=== PATIENT | female | born 1945 | race African-American/Black ===

== ENCOUNTER 2018-03-28 12:29 | Emergency (ER) | payer MEDICARE ==
[~2018-03-28] VITALS: Ht 165.1 cm; Wt 72.7 kg
[2018-03-28 12:33] VITALS: Ht 165.1 cm; Wt 72.7 kg
[2018-03-28] MEDS ORDERED: NAMENDA10 MG PO (12:34)
[2018-03-28] MEDS ORDERED: RISPERDAL0.25 MG PO (12:35)
[2018-03-28] MEDS ORDERED: ZANTAC300 MG PO (12:35)
[2018-03-28] MEDS ORDERED: OXYBUTYNIN CHLOR5 MG PO (12:35)
[2018-03-28] MEDS ORDERED: DONEPEZIL HCL10 M1 PO (12:36)
[2018-03-28] MEDS ORDERED: LISINOPRIL5 MG PO (12:36)
[2018-03-28 13:07] LABS: BASOPHILS 0.2 % (0-2); EOSINOPHILS 7.5 % (0-7); HEMATOCRIT 36.9 % (36.0-48.0); HEMOGLOBIN 12.1 g/dL (12-16); LYMPHOCYTES 34.8 % (15-50); MCH 30.1 pg (26.0-34.0); MCHC 32.8 g/dL (31.0-37.0); MCV 91.8 fL (80.0-100.0); MEAN PLATELET VOLUME 9.9 fL (7.4-10.4); MONOCYTES 12.2 % (2-11); NEUTROPHILS 45.3 % (40-80); PLATELET COUNT 179 10x3/uL (130-400); RBC 4.02 10x6/uL (4.00-5.40); RDW 12.8 % (11.5-14.5); WBC 4.3 10x3/uL (4.8-10.8)
[2018-03-28 13:13] LABS: ALBUMIN 3.5 g/dL (3.4-5.0); ANION GAP 15.6 mmol/L (8-16); BILIRUBIN - TOTAL 0.3 mg/dL (0.2-1.3); CALCIUM 8.8 mg/dL (8.5-10.1); CREATININE - SERUM 1.2 mg/dL (0.6-1.3); POTASSIUM - SERUM 3.6 mmol/L (3.5-5.1); PROTEIN - SERUM 7.4 g/dL (6.4-8.2)
[2018-03-28 14:41] LABS: APPEARANCE CLEAR (CLEAR); BILIRUBIN NEGATIVE (NEGATIVE); COLOR YELLOW (YELLOW); GLUCOSE NEGATIVE (NEGATIVE); KETONE NEGATIVE (NEGATIVE); NITRITE NEGATIVE (NEGATIVE); PROTEIN NEGATIVE (NEGATIVE); UROBILINOGEN NORMAL (NORMAL)
[2018-03-28 16:20] VITALS: BP 156/63
== END 2018-03-28 16:56 | disposition home or self-care (01) ==
LOC: D.ER 12:29
PROVIDERS: Emergency Medicine
DX: R53.1 Weakness (principal); F03.90 Unspecified dementia, unspecified severity, without behavioral disturbance, psychotic disturbance, mood disturbance, and anxiety; R20.2 Paresthesia of skin; R53.83 Other fatigue; I10 Essential (primary) hypertension

== ENCOUNTER 2018-04-26 17:52 | Inpatient (IN) | payer MEDICARE ==
[~2018-04-26] VITALS: Ht 165.1 cm; Wt 73.9 kg
--- NOTE | ~2018-04-26 | PN ---
PATIENT:PIPER GARZA MEDICAL RECORD: [id number] LOCATION:[facility] ADMISSION DATE: 04/26/18 PROGRESS NOTE DATE OF SERVICE: 05/07/2018 SUBJECTIVE: The patient's case was discussed with staff. She has no new complaint. OBJECTIVE: The patient denies intent to harm herself or others. She is tolerating her medicines well. ASSESSMENT: No change in diagnoses. PLAN: Supportive and educational interventions were made. Long-term prognosis is guarded. TRANSINT:[id number] Voice Confirmation ID: [id number] DOCUMENT ID: [id number] ATA SERRANO MD at 1309 CC: [id number] DICTATION DATE: 05/07/18 1333 RADAR OPERATOR: 05/07/18 1543 ADM IN [place] [address] [place] [address]
--- NOTE | ~2018-04-26 | PN ---
PATIENT:PIPER GARZA MEDICAL RECORD: [id number] LOCATION:[facility] ADMISSION DATE: 04/26/18 PROGRESS NOTE DATE OF SERVICE: 05/05/2018 SUBJECTIVE: The patient's case was discussed with staff. She has no new complaint. OBJECTIVE: The patient denies intent to harm herself or others. She generally tolerates her medicines well. Eye contact is fair. ASSESSMENT: No change in diagnoses. PLAN: The patient is not sleeping well. She will be prescribed trazodone at a dose of 100 mg at bedtime to assist with sleep consolidation. Her long-term prognosis is guarded. TRANSINT:[id number] Voice Confirmation ID: [id number] DOCUMENT ID: [id number] ATA SERRANO MD at 1021 CC: [id number] DICTATION DATE: 05/05/18 1214 CLIENT CUSTOMER MANAGER: 05/05/18 1235 ADM IN [id number] [place] [address]
--- NOTE | ~2018-04-26 | PN ---
PATIENT:PIPER GARZA MEDICAL RECORD: [id number] LOCATION:[facility] ADMISSION DATE: 04/26/18 PROGRESS NOTE DATE OF SERVICE: 05/12/2018 SUBJECTIVE: The patient's case was discussed with staff. She has no new complaint. OBJECTIVE: The patient is somewhat sedated. She has fairly limited insight about her situation. She has not been agitated today. ASSESSMENT: No change in diagnoses. PLAN: I am going to stop the patient's Klonopin. I am going to maintain her on the Geodon. Her long-term prognosis is guarded. TRANSINT:[id number] Voice Confirmation ID: [id number] DOCUMENT ID: [id number] ATA SERRANO MD at 0908 CC: [id number] DICTATION DATE: 05/12/18 1119 UNCLAIMED PROPERTY MANAGER: 05/12/18 1154 ADM IN [facility] [address] [place] [address]
--- NOTE | ~2018-04-26 | PN ---
PATIENT:PIPER GARZA MEDICAL RECORD: [id number] LOCATION:[facility] ADMISSION DATE: 04/26/18 PROGRESS NOTE DATE OF SERVICE: 04/29/2018 SUBJECTIVE: The patient's case was discussed with staff. She has no new complaint. OBJECTIVE: The patient is not eating very well, but she did sleep well last night. May be because she required some p.r.n. Haldol for agitation, but when asked about it, she does not have any recollection of the events. Today, she is awake and she is not agitated, but the documentation from last night was that she was quite aggressive and posed a safety risk and required the p.r.n. Haldol to control her behavior. I have reviewed her current medications and think that she is on an appropriate dose of Aricept and Namenda. I am going to discontinue the scheduled dose of Risperdal secondary to its clear lack of efficacy as evidenced by her; 1. Being here. 2. Continuing to need p.r.n. doses of an antipsychotic for agitation. I am going to treat her with a low dose of Geodon on a scheduled basis. She will be monitored for clinical changes associated with its use. Her long-term prognosis is guarded. TRANSINT:[id number] Voice Confirmation ID: [id number] DOCUMENT ID: [id number] ATA SERRANO MD at 1627 CC: [id number] DICTATION DATE: 04/29/18 170 CHURCH HISTORY PROFESSOR: 04/29/186 ADM IN [place] [place] [address]
--- NOTE | ~2018-04-26 | PN ---
PATIENT:PIPER GARZA MEDICAL RECORD: [id number] LOCATION:[facility] ADMISSION DATE: 04/26/18 PROGRESS NOTE DATE OF SERVICE: 05/03/2018 SUBJECTIVE: The patient's case was discussed with staff. She has no new complaint. OBJECTIVE: The patient denies intent to harm herself or others. She is tolerating her medications reasonably well. Her appetite has improved. Her behaviors have also significantly improved with the use of the Geodon. ASSESSMENT: No change in diagnoses. PLAN: I am optimistic that the [facility] going [facility]. This is a holiday weekend and I am not optimistic that it can be accomplished before Thursday, but if it does, I think it is a little premature to discharge her, but I will just assess whether or not she is stable enough to go at that time. TRANSINT:[id number] Voice Confirmation ID: [id number] DOCUMENT ID: [id number] ATA SERRANO MD at 1042 CC: [id number] DICTATION DATE: 05/03/18 1617 COMMUNICATION AND OUTREACH MANAGER: 05/03/18 1742 ADM IN [facility] [address] [place] [address]
--- NOTE | ~2018-04-26 | PN ---
PATIENT:PIPER GARZA MEDICAL RECORD: [id number] LOCATION:[facility] ADMISSION DATE: 04/26/18 PROGRESS NOTE DATE OF SERVICE: 05/09/2018 SUBJECTIVE: The patient's case was discussed with staff. She has no new complaint. OBJECTIVE: The patient is in good behavioral control with very limited insight about her condition, but she has not been aggressive. She is eating well and sleeping reasonably well. ASSESSMENT: No change in diagnoses. PLAN: Supportive and educational interventions were made. Long-term prognosis is guarded. The patient is certainly in need of 58-rqwd-r-day supervision. I am not sure at this point what the family intends to do with her. TRANSINT:[id number] Voice Confirmation ID: [id number] DOCUMENT ID: [id number] ATA SERRANO MD at 1551 CC: [id number] DICTATION DATE: 05/09/18 1157 SQUAD BOSS: 05/09/18 1218 ADM IN [place] [id number] [place] [address]
--- NOTE | ~2018-04-26 | PN ---
PATIENT:PIPER GARZA MEDICAL RECORD: [id number] LOCATION:[facility] ADMISSION DATE: 04/26/18 PROGRESS NOTE DATE OF SERVICE: 05/04/2018 SUBJECTIVE: The patient's case was discussed with staff. She has no new complaint. OBJECTIVE: The patient is eating and sleeping reasonably well. She is profoundly confused but has not been aggressive today. ASSESSMENT: No change in diagnoses. PLAN: Supportive and educational interventions were made. Long-term prognosis is guarded. TRANSINT:[id number] Voice Confirmation ID: [id number] DOCUMENT ID: [id number] ATA SERRANO MD at 1133 CC: [id number] DICTATION DATE: 05/04/18 1523 FLARING MACHINE OPERATOR: 05/04/182038 ADM IN [id number] [place] [address]
--- NOTE | ~2018-04-26 | PN ---
PATIENT:PIPER GARZA MEDICAL RECORD: [id number] LOCATION:[facility] ADMISSION DATE: 04/26/18 PROGRESS NOTE DATE OF SERVICE: 04/28/2018 SUBJECTIVE: The patient's case was discussed with staff. She has no new complaint. OBJECTIVE: The patient did not sleep at all last night. They actually have her down for zero sleep. Despite this, she does not appear to be significantly sleepy or distressed. The patient is disorganized and makes some delusional comments. She is otherwise in good behavioral control, but has clear evidence of mood lability. ASSESSMENT: No change in diagnoses. PLAN: The patient will be maintained on her current medicines, but I am going to give her a low dose of trazodone to assist with sleep consolidation. TRANSINT:[id number] Voice Confirmation ID: [id number] DOCUMENT ID: [id number] ATA SERRANO MD at 1613 CC: [id number] DICTATION DATE: 04/28/18 1214 LOCAL GOVERNMENT LEGISLATOR: 04/28/18 1255 ADM IN [facility] [address] [place] [address]
--- NOTE | ~2018-04-26 | PN ---
PATIENT:PIPER GARZA MEDICAL RECORD: [id number] LOCATION:[facility] ADMISSION DATE: 04/26/18 PROGRESS NOTE DATE OF SERVICE: 05/10/2018 SUBJECTIVE: The patient's case was discussed with staff. She has no new complaint. OBJECTIVE: The patient is quite confused, but she is eating and sleeping reasonably well. She is tolerating her current medications well. She certainly is in need of 07-ppke-r-day supervision. At this point, the problem with discharge is primarily related to clerical issues that the long term needs settled before they will accept her. Once those arrangements are made, I will discharge her. TRANSINT:[id number] Voice Confirmation ID: [id number] DOCUMENT ID: [id number] ATA SERRANO MD at 0932 CC: [id number] DICTATION DATE: 05/10/18 1602 MANAGER HOUSE: 05/10/18 1715 ADM IN [facility] [address] [place] [address]
--- NOTE | ~2018-04-26 | PSY ---
PATIENT NAME:PIPER GARZA MEDICAL RECORD: [id number] : 43 LOCATION:[facility] ADMISSION DATE: 04/26/18 ACCOUNT: [id number] PSYCHIATRIC EVALUATION DATE OF EVALUATION: 04/27/18 IDENTIFYING DATA: The patient is 73 years old and she is admitted to the hospital on a voluntary basis. CHIEF COMPLAINT: Agitation. HISTORY OF PRESENT ILLNESS: The patient has a known history of dementia and was brought to the Emergency Room. She was brought there because she was going out in the cold and the rain and wandering about in a confused way. When efforts were made by her family to bring her home or to assist her, she would become aggressive and combative. She has no real recollection of these events. She is clearly quite confused. She is, however, cooperative and denies that she would seek to harm herself or others. PAST MEDICAL HISTORY: Significant for hypertension. PAST PSYCHIATRIC HISTORY: Significant for an established diagnosis of dementia. She has been receiving cholinesterase and nicotine-inhibiting medications. She is also receiving an antipsychotic. FAMILY HISTORY: Negative for psychiatric disease by her report, which is unreliable. There is a family history of cardiovascular disease and she has a sister, who has had cancer. ALLERGIES: PENICILLIN. CURRENT MEDICATIONS: Include lisinopril, Namenda, Risperdal, Zantac, Aricept and Ditropan. SOCIAL HISTORY: The patient is . She does have adult children who are involved with her care. She has no history of drug or alcohol abuse. MENTAL STATUS EXAMINATION: The patient is awake, alert and oriented to person and place, but not to time or situation. Her mood is anxious. Her affect is constricted. Thought processes are circumstantial. Memory, concentration and abstraction abilities are moderately impaired and she denies any intent to harm herself or others as well as psychotic symptoms. ASSESSMENT: AXIS I: Senile dementia of the Alzheimer's type with behavioral disturbances. AXIS II: None. AXIS III: Hypertension, osteoarthritis. AXIS IV: Moderate stressors. AXIS V: Global Assessment of Functioning is 30. PLAN: At this time, the patient is admitted to the hospital for a comprehensive medical, psychological and social evaluation. She will be treated with both mood stabilizing and memory enhancing medications. Her long-term prognosis is guarded. TRANSINT:[id number] Voice Confirmation ID: [id number] DOCUMENT ID: [id number] ATA SERRANO MD at 0827 CC: [id number] DICTATION DATE: 04/27/18 1223 ANALYTICS INTERN: 04/27/18 1232 ADM IN [facility] [address] [place] [id number]
--- NOTE | ~2018-04-26 | PN ---
PATIENT:PIPER GARZA MEDICAL RECORD: [id number] LOCATION:[facility] ADMISSION DATE: 04/26/18 PROGRESS NOTE DATE OF SERVICE: 05/08/2018 SUBJECTIVE: The patient's case was discussed with staff. She has no new complaint. OBJECTIVE: The patient is tolerating her medicines well and has not been aggressive today. She is very limited in her insight. ASSESSMENT: No change in diagnoses. PLAN: Brief supportive and educational interventions were made. Long-term prognosis is guarded. TRANSINT:[id number] Voice Confirmation ID: [id number] DOCUMENT ID: [id number] ATA SERRANO MD at 1050 CC: [id number] DICTATION DATE: 05/08/[address] SECURITY OFFICER: 05/08/18 1346 ADM IN [id number] [place] [address]
--- NOTE | ~2018-04-26 | PN ---
PATIENT:PIPER GARZA MEDICAL RECORD: [id number] LOCATION:[facility] ADMISSION DATE: 04/26/18 PROGRESS NOTE DATE OF SERVICE: 05/11/2018 SUBJECTIVE: The patient's case was discussed with staff. She has no new complaint. OBJECTIVE: The patient is disorganized with severe cognitive impairment. She is not sleeping. In fact, she only slept 1 hour last night. She has been agitated, but has not required p.r.n. medication. ASSESSMENT: No change in diagnoses. PLAN: The patient will be given Klonopin at a dose of 0.5 mg twice daily. Klonopin is being used to treat her underlying anxiety. Hopefully, it will assist with sleep consolidation. TRANSINT:[id number] Voice Confirmation ID: [id number] DOCUMENT ID: [id number] ATA SERRANO MD at 1058 CC: [id number] DICTATION DATE: 05/11/18 1427 LEAD PROGRAMMER: 05/11/18 1624 ADM IN [place] [address] [place] [id number]
--- NOTE | ~2018-04-26 | PN ---
PATIENT:PIPER GARZA MEDICAL RECORD: [id number] LOCATION:[facility] ADMISSION DATE: 04/26/18 PROGRESS NOTE DATE OF SERVICE: 05/02/2018 SUBJECTIVE: The patient's case was discussed with staff. She has no new complaint. OBJECTIVE: The patient denies intent to harm herself or others. She has not been aggressive here today. She is tolerating her medications well and does not seem to be excessively sedated. ASSESSMENT: No change in diagnoses. PLAN: Current medicines will be maintained. Her long-term prognosis is guarded. TRANSINT:[id number] Voice Confirmation ID: [id number] DOCUMENT ID: [id number] ATA SERRANO MD at 1556 CC: [id number] DICTATION DATE: 05/02/18 1254 ASSISTANT LIBRARIAN: 05/02/18 1524 ADM IN [place] [address] [place] [id number]
--- NOTE | ~2018-04-26 | PN ---
PATIENT:PIPER GARZA MEDICAL RECORD: [id number] LOCATION:[facility] ADMISSION DATE: 04/26/18 PROGRESS NOTE DATE OF SERVICE: 05/13/2018 SUBJECTIVE: The patient's case was discussed with staff. She has no new complaint. OBJECTIVE: The patient is in good behavioral control. She has limited insight about her condition. She does tolerate her medicines well. ASSESSMENT: No change in diagnoses. PLAN: Supportive and educational interventions were made. The patient will be transitioned out of the hospital today. Followup will be with her primary care physician. I see no evidence of symptoms that would necessitate delay in her discharge. TRANSINT:[id number] Voice Confirmation ID: [id number] DOCUMENT ID: [id number] ATA SERRANO MD at 1730 CC: [id number] DICTATION DATE: 05/13/18 1426 TRADEMARK ATTORNEY: 05/13/18 1510 DIS IN 05/13/18 [facility] [address] [place] [address]
--- NOTE | ~2018-04-26 | PN ---
PATIENT:PIPER GARZA MEDICAL RECORD: [id number] LOCATION:[facility] ADMISSION DATE: 04/26/18 PROGRESS NOTE DATE OF SERVICE: 05/01/2018 SUBJECTIVE: The patient's case was discussed with staff. She has no new complaint. OBJECTIVE: The patient is in good behavioral control with limited insight about her condition. She is eating reasonably well and sleeping reasonably well too. She is taking both Aricept and Namenda what I think are reasonable doses and I do not think it is going to be helpful to increase those. Overall, her behaviors are significantly better. ASSESSMENT: No change in diagnoses. PLAN: Current medicines and therapies have been reviewed and will be maintained. Her long-term prognosis is guarded. TRANSINT:[id number] Voice Confirmation ID: [id number] DOCUMENT ID: [id number] ATA SERRANO MD at 1556 CC: [id number] DICTATION DATE: 05/01/18 1259 SUPERVISOR STERILE PROCESSING: 05/01/18 1307 ADM IN [facility] [address] [place] [address]
--- NOTE | ~2018-04-26 | PN ---
PATIENT:PIPER GARZA MEDICAL RECORD: [id number] LOCATION:[facility] ADMISSION DATE: 04/26/18 PROGRESS NOTE DATE OF SERVICE: 04/30/2018 SUBJECTIVE: The patient's case was discussed with staff. She has no new complaint. OBJECTIVE: The patient is partially oriented and has a depressed mood. She denies that she would seek to harm herself or others. The Geodon does seem to have assisted with her thought consolidation. Based on the amount that she is sleeping though, I do not think she is needing the trazodone anymore. Based on this, I am going to discontinue it. If problems develop, of course, I can start it back. TRANSINT:[id number] Voice Confirmation ID: [id number] DOCUMENT ID: [id number] ATA SERRANO MD at 1249 CC: [id number] DICTATION DATE: 04/30/18 1635 LASER/ELECTRO OPTICS TECHNICIAN: 04/30/18 1727 ADM IN [place] [id number] [place] [address]
--- NOTE | ~2018-04-26 | DS ---
PATIENT:PIPER GARZA :43 MEDICAL RECORD: [id number] DISCHARGE SUMMARY ADMISSION DATE: 04/26/18 DISCHARGE DATE: 05/13/18 IDENTIFYING DATA: The patient is 73 years old and she is admitted to the hospital on a voluntary basis because of agitation. The patient has a known history of dementia and presents to the Emergency Room. She was brought here because she was going out into the cold and the rain and wandering about in a confused way. When efforts were made by her family to bring her home or to assist her, she would become aggressive and combative. She has no real recollection of these events. She was clearly quite confused and denied any psychotic symptoms as well as thoughts of harming herself or others. HOSPITAL COURSE: The patient was admitted to the hospital and fully evaluated from both a medical, psychological, and social standpoint. She was treated with both memory enhancing and mood-stabilizing medications and showed significant improvement. The patient was subsequently transitioned to a facility where she could receive 33-rnsi-i-day supervision and care. DISCHARGE DIAGNOSES: AXIS I: Senile dementia of the Alzheimer's type with behavioral disturbances. AXIS II: None. AXIS III: Hypertension, osteoarthritis. AXIS IV: Moderate stressors. AXIS V: Global Assessment Of Functioning is 30. PLAN: At the time of discharge, the patient was not acutely dangerous to herself or others. She was tolerating her medications well. She has no evidence of acute or direct dangerousness. Followup will be with her primary care custodial physician. TRANSINT:[id number] Voice Confirmation ID: [id number] DOCUMENT ID: [id number] ATA SERRANO MD at 1147 CC: [id number] DICTATION DATE: 05/17/18 1603 DRAFTER CONSTRUCTION: 05/18/18 0658 DIS IN 05/13/18 [id number] [place] [address]
--- NOTE | ~2018-04-26 | PN ---
PATIENT:PIPER GARZA MEDICAL RECORD: [id number] LOCATION:[facility] ADMISSION DATE: 04/26/18 PROGRESS NOTE DATE OF SERVICE: 05/06/2018 SUBJECTIVE: The patient's case was discussed with staff. She has no new complaint. OBJECTIVE: The patient is in good behavioral control with limited insight about her condition. She is eating reasonably well. Her sleep is marginally acceptable, but it is a little inconsistent, so I am not going to start her on another medication for it. She has only had the trazodone one night. If this level of improvement continues, probably she can be discharged in a few days. TRANSINT:[id number] Voice Confirmation ID: [id number] DOCUMENT ID: [id number] ATA SERRANO MD at 1327 CC: [id number] DICTATION DATE: 05/06/18 1036 AUTOMOTIVE TITLE CLERK: 05/06/18 1151 ADM IN [place] [id number] [place] [address]
[~2018-04-26 17:52] MED LIST: DONEPEZIL HCL10 M1 PO; LISINOPRIL5 MG PO; NAMENDA10 MG PO; OXYBUTYNIN5 MG/BLIST PO; RISPERDAL0.25 MG PO; ZANTAC300 MG PO
[2018-04-26 19:04] LABS: BASOPHILS 0.5 % (0-2); EOSINOPHILS 3.2 % (0-7); HEMATOCRIT 38.4 % (36.0-48.0); HEMOGLOBIN 12.5 g/dL (12-16); LYMPHOCYTES 32.5 % (15-50); MCH 30.6 pg (26.0-34.0); MCHC 32.6 g/dL (31.0-37.0); MCV 93.9 fL (80.0-100.0); MEAN PLATELET VOLUME 10.4 fL (7.4-10.4); MONOCYTES 10.8 % (2-11); PLATELET COUNT 163 10x3/uL (130-400); RBC 4.09 10x6/uL (4.00-5.40); RDW 12.7 % (11.5-14.5); WBC 4.1 10x3/uL (4.8-10.8)
[2018-04-26 19:12] LABS: ALBUMIN 3.3 g/dL (3.4-5.0); ANION GAP 11.1 mmol/L (8-16); BILIRUBIN - TOTAL 0.33 mg/dL (0.2-1.3); CALCIUM 8.6 mg/dL (8.5-10.1); CARBON DIOXIDE 26.2 mmol/L (21.0-32.0); CREATININE - SERUM 1.1 mg/dL (0.6-1.3); POTASSIUM - SERUM 3.3 mmol/L (3.5-5.1); PROTEIN - SERUM 7.3 g/dL (6.4-8.2)
[2018-04-26 19:31] LABS: APPEARANCE CLEAR (CLEAR); BILIRUBIN NEGATIVE (NEGATIVE); COLOR YELLOW (YELLOW); GLUCOSE NEGATIVE (NEGATIVE); KETONE NEGATIVE (NEGATIVE); NITRITE NEGATIVE (NEGATIVE); PROTEIN NEGATIVE (NEGATIVE); UDS - AMPHET NEGATIVE QUAL (NEGATIVE); UDS - BARB NEGATIVE QUAL (NEGATIVE); UDS - BENZO NEGATIVE QUAL (NEGATIVE); UDS - COCAINE NEGATIVE QUAL (NEGATIVE); UDS - OPIATE NEGATIVE QUAL (NEGATIVE); UDS - PCP NEGATIVE QUAL (NEGATIVE); UDS - THC NEGATIVE QUAL (NEGATIVE); UROBILINOGEN NORMAL (NORMAL)
[2018-04-26 21:52] VITALS: BP 190/82; BMI 27.2
[2018-04-27 07:09] LABS: CHOL - HDL RATIO 4.2 ratio (2.3-4.1); LDL-HDL RATIO 2.9 ratio (1.5-3.5); THYROID STIMULATING HORMONE 1.33 uIU/mL (0.36-3.74)
[2018-04-27 08:00] VITALS: BP 158/84
[2018-04-27 08:30] VITALS: BMI 27.1
[2018-04-27 11:45] VITALS: Ht 165.1 cm; Wt 73.9 kg
[2018-04-27 19:51] VITALS: BP 148/85
[2018-04-28 06:16] LABS: VITAMIN D 25 HYDROXY 35.8 ng/mL (30.0-100.0)
[2018-04-28 07:28] LABS: RAPID PLASMA REAGIN Non Reactive (Non Reactive)
[2018-04-28 08:17] LABS: FOLATE (FOLIC ACID) - SERUM 11.9 ng/mL (>3.0)
[2018-04-28 09:04] VITALS: BP 160/86
[2018-04-28 20:04] VITALS: BP 168/81
[2018-04-29 07:36] VITALS: BP 152/88
[2018-04-29 20:49] VITALS: BP 175/73
[2018-04-30 10:59] VITALS: BP 149/76
[2018-04-30 20:29] VITALS: BP 126/71
[2018-05-01 08:00] VITALS: BP 152/92
[2018-05-01 20:23] VITALS: BP 161/72
[2018-05-02 08:00] VITALS: BP 158/61
[2018-05-02 20:20] VITALS: BP 149/76
[2018-05-03 09:17] VITALS: BP 191/85
[2018-05-03 19:33] VITALS: BP 125/61
[2018-05-04 09:35] VITALS: BP 164/85
[2018-05-04 20:00] VITALS: BP 157/85
[2018-05-05 10:03] VITALS: BP 136/63
[2018-05-05 19:41] VITALS: BP 163/82
[2018-05-06 08:51] VITALS: BP 184/71
[2018-05-06 19:14] VITALS: BP 121/63
[2018-05-07 08:04] VITALS: BP 109/69
[2018-05-07 20:04] VITALS: BP 100/70
[2018-05-08 10:18] VITALS: BP 110/63
[2018-05-08 21:22] VITALS: BP 136/60
[2018-05-09 08:52] VITALS: BP 184/87
[2018-05-09 20:00] VITALS: BP 129/57
[2018-05-10 08:00] VITALS: BP 174/62
[2018-05-10 19:53] VITALS: BP 185/76
[2018-05-11 08:00] VITALS: BP 125/74
[2018-05-11 19:53] VITALS: BP 120/81
[2018-05-12 07:30] VITALS: BP 172/80
[2018-05-12] MEDS ORDERED: LISINOPRIL10 MG PO (11:21)
[2018-05-12] MEDS ORDERED: HYDRALAZINE HCL25 MG PO (11:21)
[2018-05-12] MEDS ORDERED: TRAZODONE HCL100 MG PO (11:21)
[2018-05-12] MEDS ORDERED: LINZESS145 MCG PO (11:22)
[2018-05-12] MEDS ORDERED: LIDODERM 5 %1 PATCH TRANSDERM (11:22)
[2018-05-12] MEDS ORDERED: GEODON20 MG PO (11:22)
[2018-05-12 19:47] VITALS: BP 169/64
[2018-05-13 09:48] VITALS: BP 157/75
== END 2018-05-13 16:14 | disposition home or self-care (01) | DRG 57 ==
LOC: D.ER 17:52 → D.PSYCH 20:39
PROVIDERS: Family Medicine; Psychiatry & Neurology Psychiatry
DX: G30.1 Alzheimer's disease with late onset (principal); F02.81 Dementia in other diseases classified elsewhere, unspecified severity, with behavioral disturbance; I10 Essential (primary) hypertension; M19.90 Unspecified osteoarthritis, unspecified site; N32.81 Overactive bladder; K21.9 Gastro-esophageal reflux disease without esophagitis; F41.9 Anxiety disorder, unspecified; M25.511 Pain in right shoulder; K59.09 Other constipation